=== PATIENT | female | born 1950 | race Native Hawaiian/Other Pacific Islander ===

== ENCOUNTER 2023-11-25 15:07 | Emergency (ER) | payer MEDICAID, SELFPAY ==
[2023-11-25 15:19] VITALS: BP 105/60; PULSE 84; RESP 22; TEMP 36.3; O2SAT 98; BMI 29.2
--- NOTE | 2023-11-25 16:07 | CRLHL7_ITS ---
For Patients: As a result of the Century Cures Act, medical imaging exams and procedure reports are released immediately into your electronic medical record. You may view this report before your referring provider. If you have questions, please contact your health care provider. INDICATION: right flank pain, right hip pain, right lower quadrant pain for 1.5 weeks TECHNIQUE: CT abdomen and pelvis acquired with 83 cc Isovue 370 IV contrast. Permanently recorded images are archived. COMPARISON: CT chest, abdomen, and pelvis 04/27/2021 FINDINGS: Lower chest: Unremarkable. Liver: Several, too small to characterize subcentimeter hypodense foci throughout the liver. Normal in size and contour. No suspicious masses. Gallbladder and bile ducts: Unremarkable. No stones or inflammation. No biliary dilatation. Pancreas: Unremarkable. No mass or inflammation. Spleen: Unremarkable. Normal in size. No masses. Adrenal glands: Unremarkable. No nodules. Kidneys, Ureters, and Bladder: Unchanged exophytic, 7.0 cm simple cyst arising from right kidney superior pole. Numerous subcentimeter hypodense foci throughout both kidneys, likely cysts. No suspicious mass, stone, or hydronephrosis. Unremarkable ureters and bladder. GI tract: Unremarkable. Normal in caliber. No sign of inflammation. The appendix is not clearly visualized; however, there are no inflammatory changes in the right lower quadrant. Vasculature: Normal caliber abdominal aorta with moderate atherosclerotic calcification. Mesenteric arteries are patent. Lymph nodes: No lymphadenopathy. Peritoneum/Abdominal Wall: Bilateral gluteal soft tissue granulomas. No free air or significant free fluid. Pelvis: Status post hysterectomy. Bones: Unremarkable for age. IMPRESSION: 1. No acute findings within the abdomen and pelvis. The appendix is not clearly visualized; however, there are no inflammatory changes in the right lower quadrant. 2. Unchanged exophytic 7 cm simple cyst arising from the right kidney superior pole. No urolith or evidence of obstructive uropathy. Please note that all CT scans at this facility use dose modulation, iterative reconstruction, and/or weight-based dosing when appropriate to reduce radiation dose to as low as reasonably achievable. Dictated by Nixon Hopson MD @ 11/25/2023 6:53:18 PM (Electronically Signed)
--- NOTE | 2023-11-25 16:18 | ED_ITS ---
HPI - General Adult General Chief complaint: Hip Injury/Pain Stated complaint: Severe pain R hip and back-no trauma Time Seen by Provider: 11/25/23 15:57 Source: patient and family (Opening) Mode of arrival: ambulatory History of Present Illness HPI narrative: Patient is a 72-year-old female with hyperlipidemia, hypertension presenting for right flank, right lower quadrant/pelvic, right hip pain. Pain started a week and half ago and has been progressively getting worse. She has not remember any injuries or trauma to the area. Says the pain seems to come and go on as worse as a 10/10 sharp pain that she says feels like a cramp. Pain is getting worse to the point today worse she is having difficulty ambulating and has to move very slowly. She is unable to get comfortable. Initially they thought the pain was just in the hip but then she has noticed it is going up her right flank and down into her right lower quadrant/pelvic region. She has never had pain like this before. Denies dysuria or hematuria. Does note she got x-rays done yesterday along with a urinalysis that showed no concerning findings. Denies nausea/vomiting, diarrhea, constipation, chest pain, shortness of breath, lightheadedness. She does state the pain is causing some mild dizziness right now. Related Data Home Medications Medication Instructions Recorded Confirmed metronidazole 0.75 % lotion 1 applic topical BID 06/15/22 pravastatin 20 mg tablet 20 mg PO QDAY 06/15/22 triamcinolone acetonide 0.1 % 1 applic topical BID 06/15/22 topical cream Previous Rx's Medication Instructions Recorded bupropion HCl 150 mg 24 hr tablet, 150 mg PO DAILY #60 tabs 06/19/22 extended release levothyroxine 88 mcg tablet 88 mcg PO DAILY #60 tabs 06/19/22 losartan 50 mg tablet 50 mg PO DAILY #60 tabs 06/19/22 Allergies Allergy/AdvReac Type Severity Reaction Status Date / Time kiwi extract Allergy Mild Unknown Uncoded 11/25/23 17:44 Review of Systems Status of ROS: Reports: 10 or more systems reviewed and unremarkable except as noted in History and below [facility] Medical History Snoring ?R06.83 - Snoring (ICD-10) Lip numbness ?R20.0 - Anesthesia of skin (ICD-10) Surgical History Hx of appendectomy ?Z90.49 - Acquired absence of other specified parts of digestive tract (ICD- 10) S/P KERRI (total abdominal hysterectomy) ?Z90.710 - Acquired absence of both cervix and uterus (ICD-10) Family History Father Coronary artery disease Brother High blood pressure Social History Narrative: Smoking Status: Never smoker Do you use any of these nicotine containing products: None How often do you have a drink containing alcohol: never How often do you have six or more drinks on one occasion: Never AUDIT-C Alcohol total score: 0 Non-prescribed substance use: denies use Exam Narrative: Exam Narrative: Const: Well-nourished, Well-developed, in moderate distress Eyes: PERRL, no conjunctival injection, and symmetrical lids HENT: Atraumatic external nose and ears. Moist mucous membranes. Neck: Symmetric, trachea midline, No thyromegaly. CVS: RRR, No murmurs or gallops. Peripheral pulses 2+ and equal in all extremities RESP: Unlabored respiratory effort. Clear to auscultation bilaterally. GI: Right lower quadrant tenderness, right CVA tenderness, Nondistended, No rebound or guarding. MSK:Extremities w/o deformity, Normal Active ROM, right low back and hip tenderness, no midline lumbar tenderness Skin: Warm, Dry. No rashes or lesions. Neuro: Normal Muscle tone, No focal neurological deficits. Psych: Awake, Alert, & Oriented x3. Appropriate mood and affect. Const: Vital Signs, click to edit/add: Vital Signs - 24 hr 11/25/23 15:19 11/25/23 17:25 Temperature 97.4 F L Pulse Rate [Pulse Oximeter] 84 76 Respiratory Rate 22 24 Blood Pressure [Ri ght Forearm] 105/60 123/67 Pulse Oximetry 98 96 Oxygen Delivery Me thod Room Air Room Air Course Vital Signs Vital signs: Initial Vital Signs Temperature 97.4 F L 11/25/23 15:19 Temperature Source Temporal Artery Scan 11/25/23 15:19 Pulse Rate 84 11/25/23 15:19 Pulse Rhythm Regular 11/25/23 15:19 Pulse Strength 3+ Normal 11/25/23 15:19 Respiratory Rate 22 11/25/23 15:19 Blood Pressure 105/60 11/25/23 15:19 Blood Pressure Mean 75 11/25/23 15:19 Blood Pressure Position Sitting 11/25/23 15:19 Pulse Oximetry 98 11/25/23 15:19 Oxygen Delivery Method Room Air 11/25/23 15:19 Vital Signs Temperature 97.4 F L 11/25/23 15:19 Pulse Rate 84 11/25/23 15:19 Respiratory Rate 22 11/25/23 15:19 Blood Pressure 105/60 11/25/23 15:19 Pulse Oximetry 98 11/25/23 15:19 Oxygen Delivery Method Room Air 11/25/23 15:19 Temperature 97.4 F L 11/25/23 15:19 Pulse Rate 76 11/25/23 17:25 Respiratory Rate 24 11/25/23 17:25 Blood Pressure 123/67 11/25/23 17:25 Pulse Oximetry 96 11/25/23 17:25 Oxygen Delivery Method Room Air 11/25/23 17:25 Medications Administered Medications: Discontinued Medications Generic Name Dose Route Start Last Admin Trade Name Freq PRN Reason Stop Dose Admin Ketorolac Tromethamine 15 mg 11/25/23 16:07 11/25/23 16:27 Ketorolac 15 Mg/Ml Inj IVP 11/25/23 16:08 15 mg ONCE ONE Administration Morphine Sulfate 4 mg 11/25/23 16:07 11/25/23 16:25 Morphine 4 Mg/Ml Inj IVP 11/25/23 16:08 4 mg ONCE ONE Administration Morphine Sulfate 4 mg 11/25/23 17:30 11/25/23 18:27 Morphine 4 Mg/Ml Inj IVP 11/25/23 17:31 4 mg ONCE ONE Administration Medical Decision Making [facility] Narrative Medical decision making narrative: Patient is a 72-year-old female presenting for right-sided back, abdomen, hip pain. Will her pain is mostly in the paraspinal muscles it does radiate into her abdomen pelvis. She also states she has some radiation down the leg. This seems most likely a musculoskeletal injury but considering her description of the pain in locations I do have concerns for nephrolithiasis, appendicitis. Has a previous hysterectomy and a SBO is on the differential at this time. We will get some basic lab work including CBC, BMP, urinalysis and do a CT scan of the abdomen and pelvis to better evaluate her pain. For lab work all returned showing no concerning findings. No signs of UTI or liver issues. Patient was given Toradol and morphine for pain which helped improve her symptoms. Later on in her stay she required another dose of morphine. CT scan of the abdomen pelvis returned showing no concerning findings. Symptoms seem most likely related to musculoskeletal injury. She is not having any saddle anesthesia, loss of bowel or bladder control, no urinary tension, no fevers. She is not having red flag symptoms and is unlikely to have cauda equina. She did mention that the provider she saw yesterday mentioned physical therapy also now and both she is interested in getting this started. She will be given oxycodone to instymeds. Will be discharged home. Lab Data Labs: Lab Results 11/25/23 Range/Units 16:30 WBC 5.31 (4.50-11.00) K/uL RBC 4.91 (4.00-5.20) m/uL Hgb 14.5 (12.0-16.0) gm/dL Hct 43.3 (33.0-51.0) % MCV 88 (80-100) fL MCH 30 (26-34) pg MCHC 34 (32-36) gm/dL RDW Coeff of Sadaf 14.0 (11.5-15.5) % Plt Count 264 (140-440) K/uL Neut % (Auto) 54.8 (42.0-72.0) % Lymph % (Auto) 35.0 (20-44) % [place] % (Auto) 7.3 (0.0-11.0) % Eos % (Auto) 2.3 (0.0-7.0) % Baso % (Auto) 0.4 (0.0-3.0) % Neut # (Auto) 2.90 (1.7-7.0) K/uL Lymph # (Auto) 1.90 (0.90-2.90) K/uL [place] # (Auto) 0.40 (0.00-0.90) K/UL Eos # (Auto) 0.10 (0.00-0.50) K/uL Baso # (Auto) 0.00 (0.00-0.30) K/uL Abs Immat Gran (auto) 0.00 (0.00-0.30) K/uL Imm/Tot Granulo (auto) 0.2 % Sodium 140 (135-149) mmol/L Potassium 4.1 (3.6-5.1) mmol/L Chloride 108 (96-114) mmol/L Carbon Dioxide 17 L (20-32) mmol/L Anion Gap 15 (7-15) mEq/L BUN 16 (7-30) mg/dL Creatinine 0.7 (0.5-1.5) mg/dL Estimated Creat Clear 44.56 Estimated GFR 92 ml/min Glucose 103 (60-115) mg/dL Calcium 10.4 (8.4-10.6) mg/dL Urine Color Yellow (Yellow) Urine Appearance Clear (Clear) Urine pH 7.0 (5.0-8.5) Ur Specific [place] 1.015 (1.000-1.030) Urine Protein Negative (Negative) Urine Glucose (UA) Negative (Negative) Urine Ketones Negative (Negative) Urine Blood Trace-intact A (Negative) Urine Nitrite Negative (Negative) Urine Bilirubin Negative (Negative) Urine Urobilinogen 0.2 (0.2-1.0) Ur Leukocyte Esterase Trace A (Negative) Urine RBC 0-2 (0-2) Urine WBC 0-2 (0-5) Ur Squamous Epith Cells None (None-Few) Urine Bacteria Few A (None) Imaging Data CT scan abdomen pelvis: Radiologist's impression: 1. No acute findings within the abdomen and pelvis. The appendix is not clearly visualized; however, there are no inflammatory changes in the right lower quadrant. 2. Unchanged exophytic 7 cm simple cyst arising from the right kidney superior pole. No urolith or evidence of obstructive uropathy. Please note that all CT scans at this facility use dose modulation, iterative reconstruction, and/or weight-based dosing when appropriate to reduce radiation dose to as low as reasonably achievable. Dictated by Nixon Hopson MD @ 11/25/2023 6:53:18 PM Discharge Plan Discharge Clinical Impression: Back strain Qualifiers: Encounter type: initial encounter Qualified Code(s): S39.012A - Strain of muscle, fascia and tendon of lower back, initial encounter Patient Disposition: Home, Self-Care Condition: Improved Instructions: Back Pain (ED) Additional Instructions: Appears secure pain is related to musculoskeletal strain. I recommend taking Tylenol ibuprofen for pain if that is not helping he can use the oxycodone. Follow-up with the primary care provider about possibly being set up with physical therapy to help. Return for new worsening symptoms Prescriptions: No Action metronidazole 0.75 % lotion 1 applic topical BID triamcinolone acetonide 0.1 % cream 1 applic topical BID pravastatin 20 mg tablet 20 mg PO QDAY bupropion HCl 150 mg tablet extended release 24 hr 150 mg PO DAILY Qty: 60 0RF levothyroxine 88 mcg tablet 88 mcg PO DAILY Qty: 60 0RF losartan 50 mg tablet 50 mg PO DAILY Qty: 60 0RF Follow Up/Referrals: Provider,Not a Local [Primary Care Provider] - Stand Alone Forms: [employer] Info Instructions
[2023-11-25] MEDS: MORPHINE 4 MG/ML INJ IVP ×2 (16:25→18:27)
[2023-11-25] MEDS: KETOROLAC 15 MG/ML inj IVP (16:27)
[2023-11-25 16:41] LABS: Mean Corpuscular HGB Conc 34 gm/dL (32-36); Mean Corpuscular Hemoglobin 30 pg (26-34); Mean Corpuscular Volume 88 fL (80-100)
[2023-11-25 16:56] LABS: Slide Review Reflex No
[2023-11-25 17:05] LABS: Chloride* 108 mmol/L (96-114); Sodium* 140 mmol/L (135-149)
[2023-11-25 17:06] LABS: Potassium* 4.1 mmol/L (3.6-5.1)
[2023-11-25 17:08] LABS: Anion Gap 15 mEq/L (7-15); Blood Urea Nitrogen* 16 mg/dL (7-30); Carbon Dioxide* 17 mmol/L (20-32); Creatinine* 0.7 mg/dL (0.5-1.5); Est. Creatinine Clearance* 44.56; Estimated Glomerular Filt Rate 92 ml/min
[2023-11-25 17:09] LABS: Calcium* 10.4 mg/dL (8.4-10.6); Glucose* 103 mg/dL (60-115)
[2023-11-25 17:12] LABS: Appearance Urine Clear (Clear); Bilirubin Urine Negative (Negative); Blood Urine Trace-intact (Negative); Color Urine Yellow (Yellow); Glucose Urine Negative (Negative); Ketones Urine Negative (Negative); Leukocyte Esterase Urine Trace (Negative); Nitrite Urine Negative (Negative); Protein Urine Negative (Negative); Specific Gravity Urine 1.015 (1.000-1.030); Urobilinogen Urine 0.2 (0.2-1.0)
[2023-11-25 17:25] VITALS: BP 123/67; PULSE 76; RESP 24; O2SAT 96
[2023-11-25 17:25] LABS: RBC Urine 0-2 (0-2); WBC Urine 0-2 (0-5)
[2023-11-25 17:26] LABS: Bacteria Urine Few
[2023-11-25 17:27] LABS: Hemoglobin* 14.5 gm/dL (12.0-16.0); Red Blood Count 4.91 m/uL (4.00-5.20); White Blood Count* 5.31 K/uL (4.50-11.00)
[2023-11-25 17:28] LABS: Basophils Percent Auto 0.4 % (0.0-3.0); Eosinophils Percent Auto 2.3 % (0.0-7.0); Hematocrit 43.3 % (33.0-51.0); Immature Granulocytes Pct Auto 0.2 %; Monocytes Percent Auto 7.3 % (0.0-11.0); Neutrophils Percent Auto 54.8 % (42.0-72.0); Platelet Count* 264 K/uL (140-440)
== END 2023-11-25 19:18 | disposition home or self-care (01) ==
PROVIDERS: Emergency Provider Student in an Organized Health Care Education/Training Program
DX: S39.012A Strain of muscle, fascia and tendon of lower back, initial encounter (principal)
CPT/HCPCS: 36415; 74177; 80048; 81001; 85025; 87086; 96374; 96375; 99283; 99284; 99285; J1885; J2270; Q9967